=== PATIENT | female | born 1990 | race Caucasian/White ===

== ENCOUNTER 2017-07-11 21:21 | Emergency (ER) | payer OTHER ==
[~2017-07-11] VITALS: Ht 157.5 cm; Wt 54.4 kg
[2017-07-14 04:26] LABS: CHLAMYDIA TRACH Not Detected (Not Detected); N GONOR Not Detected (Not Detected)
== END 2017-07-11 23:20 | disposition home or self-care (01) ==
LOC: SED 21:21
PROVIDERS: Physician Assistant
DX: R21 Rash and other nonspecific skin eruption (principal); Z88.8 Allergy status to other drugs, medicaments and biological substances
CPT/HCPCS: 87253; 87491; 87591; 87808; 87905; 99283